=== PATIENT | female | born 1930 | race Caucasian/White ===

== ENCOUNTER 2016-05-29 12:54 | Emergency (ER) | payer MEDICARE, BC ==
[2016-05-29] MEDS ORDERED: SODIUM CHLORIDE 0.9% 1,000 ML ONE (14:53)
== END 2016-05-29 16:43 | disposition home or self-care (01) ==
LOC: ER 13:04
DX: K62.5 Hemorrhage of anus and rectum (principal); K64.4 Residual hemorrhoidal skin tags; Z87.891 Personal history of nicotine dependence
CPT/HCPCS: 36415; 74177; 80053; 85025; 85610; 86850; 86900; 86901; 96360; 96361